=== PATIENT | male | born 1965 | race Two or more races ===

== ENCOUNTER 2021-12-26 13:20 | Outpatient (CLI) | payer BC | END 2021-12-26 23:59 | disposition home or self-care (01) | LOC: WOU 13:20 | PROVIDERS: ATTEND Podiatrist Foot & Ankle Surgery | DX: G57.61 Lesion of plantar nerve, right lower limb (principal); M20.41 Other hammer toe(s) (acquired), right foot; M79.671 Pain in right foot | CPT/HCPCS: G0463 ==

== ENCOUNTER 2022-01-01 09:34 | Outpatient (CLI) | payer BC ==
[2022-01-01] MEDS ORDERED: IOHEXOL-300 100 ML VIAL IV ONE (11:05)
[2022-01-01] MEDS ORDERED: CT SWABBABLE VALVE TRANS SET 1 EA INFUS.SET MC ONE (11:05)
== END 2022-01-01 23:59 | disposition home or self-care (01) ==
LOC: CT 09:34
PROVIDERS: ATTEND Internal Medicine
DX: N40.0 Benign prostatic hyperplasia without lower urinary tract symptoms (principal); K57.30 Diverticulosis of large intestine without perforation or abscess without bleeding; K44.9 Diaphragmatic hernia without obstruction or gangrene; J98.11 Atelectasis; K76.89 Other specified diseases of liver; M47.819 Spondylosis without myelopathy or radiculopathy, site unspecified
CPT/HCPCS: 74178; Q9967

== ENCOUNTER 2022-01-01 12:09 | Outpatient (CLI) | payer BC | END 2022-01-01 23:59 | disposition home or self-care (01) | LOC: MRI 12:09 | PROVIDERS: ATTEND Podiatrist Foot & Ankle Surgery | DX: M19.071 Primary osteoarthritis, right ankle and foot (principal); M25.871 Other specified joint disorders, right ankle and foot; M20.41 Other hammer toe(s) (acquired), right foot; M77.41 Metatarsalgia, right foot; D36.10 Benign neoplasm of peripheral nerves and autonomic nervous system, unspecified | CPT/HCPCS: 73718-TC ==

== ENCOUNTER 2022-01-30 13:45 | Outpatient (CLI) | payer BC | END 2022-01-30 23:59 | disposition home or self-care (01) | LOC: WOU 13:45 | PROVIDERS: ATTEND Podiatrist Foot & Ankle Surgery | DX: G57.61 Lesion of plantar nerve, right lower limb (principal); M20.41 Other hammer toe(s) (acquired), right foot; M79.671 Pain in right foot | CPT/HCPCS: G0463 ==